=== PATIENT | female | born 1980 | race Caucasian/White ===

== ENCOUNTER 2017-11-16 07:32 | Emergency (ER) | payer OTHER ==
--- NOTE | 2017-11-16 07:42 | EDPHY ---
H & P Stated Complaint: Panic attack last night, out of ativan medication. Time Seen by Provider: 11/16/17 07:45 HPI/ROS: CHIEF COMPLAINT: Out of medication HISTORY OF PRESENT ILLNESS: This is a 36-year-old female, visiting [place] from [place] where she lives, who has history of anxiety for which she takes lorazepam 0.5 mg 3 times daily as needed. She takes this most days. She tells me that she did not bring enough medication with her on this trip and that she has not had any lorazepam for the last 2 days. Last night she was unable to sleep and has been feeling increasingly more more anxious as the morning progresses. She canceled her morning flight to return home because she did not feel she can get on airplane. She tried to contact her physician in [place] but the office was not yet open, so she came to the emergency department. She has rescheduled her flight for tomorrow. She is requesting enough Ativan to get her back to [place] where she can follow up with her primary care physician and discuss alternative treatments for hang her anxiety. She understands that she should not abruptly discontinue her Ativan. REVIEW OF SYSTEMS: A ten point review of systems was performed and is negative with the exception of the items mentioned in the HPI. Past medical history: 1. Anxiety 2. Attention deficit hyperactivity disorder Past surgical history: Nasal septum repair Social history: She is here with her . She works as a senior corporate recruiter. She does not use tobacco products. She drinks alcohol on occasion. No illicit drug use. General Appearance: Alert. Vital signs reviewed. Blood pressure 135/96 at triage. Eyes: Pupils equal and round, no conjunctival injection, no discharge. Anicteric. ENT, Mouth: Mucous membranes are moist, no oropharyngeal erythema or edema. Neck: No lymphadenopathy, supple. Respiratory: Lungs are clear to auscultation; no wheezes, rales, or rhonchi. Cardiovascular: Regular rate and rhythm; no murmur, rub, or gallop. Gastrointestinal: Abdomen is soft and nontender, no masses or organomegaly, bowel sounds normal. Skin: Warm and dry, no rashes on exposed skin, normal color. Back: Nontender to palpation over the thoracolumbar spine. No CVAT. Extremities: No lower extremity edema, no calf tenderness or swelling. Neurological: Alert and oriented. Moving all four extremities easily and equally. Psychiatric: Normal affect. - Personal History LMP (Females 10-55): Now Current Tetanus Diphtheria and Acellular Pertussis (TDAP): Yes - Medical/Surgical History Hx Asthma: No Hx Chronic Respiratory Disease: No Hx Diabetes: No Hx Cardiac Disease: No Hx Renal Disease: No Hx Cirrhosis: No Hx Alcoholism: No Hx HIV/AIDS: No Hx Splenectomy or Spleen Trauma: No Other PMH: Anxiety, ADHD, insomnia. - Social History Smoking Status: Never smoked Constitutional: Initial Vital Signs Temperature (C) 36.6 C 11/16/17 07:33 Heart Rate 94 11/16/17 07:33 Respiratory Rate 18 11/16/17 07:33 Blood Pressure 135/96 H 11/16/17 07:33 O2 Sat (%) 97 11/16/17 07:33 O2 Delivery Mode Room Air Allergies/Adverse Reactions: Penicillins Allergy (Verified 11/16/17 07:38) Home Medications: Medication Instructions Recorded Ativan 11/16/17 LORazepam [Ativan] 0.5 - 1 mg PO Q8 PRN #4 tab 11/16/17 Medical Decision Making ED Course/Re-evaluation: She is given a dose of Ativan 0.5 mg in the emergency department. She is given a prescription for Ativan 1 mg, dispense 4 tablets. She states that she does not need an airline excuse. I have not found evidence of any other illness, aside from her anxiety. Differential Diagnosis: Considered a differential diagnosis that includes but is not limited to anxiety , drug-seeking behavior, infection, ACS. - Data Points Medications Given: Discontinued Medications Lorazepam (Ativan) 0.5 mg PO EDNOW ONE Stop: 11/16/17 07:55 Last Admin: 11/16/17 07:58 Dose: 0.5 mg Departure - Departure Disposition: Home, Routine, Self-Care Clinical Impression: Medication refill Condition: Good Instructions: Medicine Refill (ED) Additional Instructions: Use all medications as prescribed. Follow up with your regular doctor upon your return home. Referrals: Rachana Peck MD [Medical Doctor] - As per Instructions Prescriptions: LORazepam [Ativan] 0.5 - 1 mg PO Q8 PRN #4 tab PRN Reason: Anxiety
[2017-11-16] MEDS ORDERED: LORazepam 1 MG TAB PO ONE (07:54)
[2017-11-16 08:12] VITALS: BP 125/78
== END 2017-11-16 08:00 | disposition home or self-care (01) ==
LOC: SUPCPDRO 07:32
DX: F41.9 Anxiety disorder, unspecified (principal); Z76.0 Encounter for issue of repeat prescription